=== PATIENT | female | born 1970 | race Caucasian/White ===

== ENCOUNTER 2017-04-06 23:03 | Emergency (ER) | payer MEDICARE ==
[2017-04-06] MEDS ORDERED: Sodium Chloride 0.9% 1,000 ML IV STA (23:38)
[2017-04-06] MEDS ORDERED: Morphine 2 mg/ml ISec IVP STA (23:38)
--- NOTE | 2017-04-06 23:43 | ED PDOC ---
Arrival/HPI - General Time Seen by Provider: 04/06/17 23:06 Historian: Patient - History of Present Illness Narrative History of Present Illness (Text): 04/06/17 23:40 Indu Esposito is a 46 year old female, whose past medical history includes depression, who presents to the emergency department complaining of stomach discomfort and nausea today. Patient states that she believes she has food poisoning after eating a boiled egg, avocado, and cereal this morning. Patient denies any fever, chills, chest pain, shortness of breath, vomiting, diarrhea, urinary symptoms, back pain, neck pain, headache, dizziness, or any other complaints. Time/Duration: 4-6 hours Symptom Onset: Gradual Symptom Course: Unchanged Severity Level: Mild Activities at Onset: Light Context: Home Past Medical History - Provider Review Nursing Documentation Reviewed: Yes Family/Social History - Physician Review Nursing Documentation Reviewed: Yes Family/Social History: No Known Family HX Allergies/Home Meds Allergies/Adverse Reactions: Allergies No Known Allergies Allergy (Unverified 04/06/17 23:31) Review of Systems - Review of Systems Constitutional: absent: Fevers, Night Sweats Eyes: absent: Vision Changes ENT: absent: Hearing Changes Respiratory: absent: SOB, Cough Cardiovascular: absent: Chest Pain Gastrointestinal: Abdominal Pain, Nausea. absent: Vomiting, Appetite Changes Genitourinary Female: absent: Dysuria, Frequency Musculoskeletal: absent: Arthralgias Skin: absent: Rash, Pruritis Neurological: absent: Headache, Dizziness Endocrine: absent: Diaphoresis Hemo/Lymphatic: absent: Adenopathy Physical Exam Vital Signs Reviewed: Yes Vital Signs Temp Pulse Resp BP Pulse Ox 04/07/17 03:04 78 16 107/70 99 04/07/17 01:04 81 16 105/72 99 04/06/17 23:04 98.3 F 86 16 98/72 L 99 Temperature: Afebrile Blood Pressure: Hypotensive Pulse: Regular Respiratory Rate: Normal Appearance: Positive for: Well-Appearing, Non-Toxic, Comfortable Pain Distress: None - Systems Exam Head: Present: Atraumatic, Normocephalic Pupils: Present: PERRL Extroacular Muscles: Present: EOMI Conjunctiva: Present: Normal Mouth: Present: Moist Mucous Membranes Neck: Present: Normal Range of Motion Respiratory/Chest: Present: Clear to Auscultation, Good Air Exchange. No: Respiratory Distress, Accessory Muscle Use Cardiovascular: Present: Regular Rate and Rhythm, Normal S1, S2. No: Murmurs Abdomen: Present: Normal Bowel Sounds. No: Tenderness, Distention, Peritoneal Signs Back: Present: Normal Inspection Upper Extremity: Present: Normal Inspection. No: Cyanosis, Edema Lower Extremity: Present: Normal Inspection. No: Edema Neurological: Present: GCS=15, CN II-XII Intact, Speech Normal Skin: Present: Warm, Dry, Normal Color. No: Rashes Psychiatric: Present: Alert, Oriented x 3, Normal Insight, Normal Concentration Medical Decision Making ED Course and Treatment: 04/06/17 23:49 Impression: 46 year old female complaining of stomach discomfort/nausea today. Differential Diagnosis included but are not limited to: Plan: -- EKG -- HCG and Urinalysis -- Labs -- Zofran, Morphine, and IV Fluids -- Reassess and disposition Progress Notes: EKG: Ordered, reviewed, and independently interpreted the EKG. Rate : 82 BPM Rhythm : NSR Interpretation : Occasional PVC. No acute changes. Comparison : No previous EKG for comparison. - Lab Interpretations Lab Results: 04/07/17 00:50 04/07/17 00:50 Lab Results 04/07/17 00:50: WBC 4.9, RBC 4.51, Hgb 13.1, Hct 39.3, MCV 87.1, MCH 29.0, MCHC 33.3, RDW 12.6, Plt Count 230, MPV 9.9 04/07/17 00:50: Sodium 136, Potassium 4.2, Chloride 103, Carbon Dioxide 26, Anion Gap 11, BUN 14, Creatinine 0.7, Est GFR ( Amer) > 60, Est GFR (Non- Af Amer) > 60, Random Glucose 123 H, Calcium 8.5, Total Bilirubin 0.3, AST 21, ALT 18, Alkaline Phosphatase 44, Total Protein 6.8, Albumin 3.8, Globulin 3.0, Albumin/Globulin Ratio 1.3, Lipase 86 04/06/17 23:50: Urine Color Yellow, Urine Appearance Sl cloudy, Urine pH 6.0, Ur Specific [place] >= 1.030, Urine Protein 30 H, Urine Glucose (UA) Negative, Urine Ketones Negative, Urine Blood Negative, Urine Nitrate Negative, Urine Bilirubin Small H, Urine Urobilinogen 1.0 H, Ur Leukocyte Esterase Negative, Urine RBC 0 - 2, Urine WBC 0 - 2, Ur Epithelial Cells 3 - 4, Urine Bacteria Mod , Urine HCG, Qual Negative I have reviewed the lab results: Yes - Medication Orders Current Medication Orders: Discontinued Medications Sodium Chloride (Sodium Chloride 0.9%) 1,000 mls @ 999 mls/hr IV .Q1H1M STA Stop: 04/07/17 00:38 Last Admin: 04/07/17 01:15 Dose: 999 mls/hr eMAR Start Stop Document 04/07/17 01:15 DANIEL (Rec: 04/07/17 01:43 LUIS FELIPE [id number]) Intravenous Solution Start Date 04/07/17 Start Time 01:15 End Date 04/07/17 End time 02:15 Total Infusion Time 60 Morphine Sulfate (Morphine) 2 mg IVP STAT STA Stop: 04/06/17 23:39 Last Admin: 04/07/17 01:15 Dose: 2 mg MAR Pain Assessment Document 04/07/17 01:15 DANIEL (Rec: 04/07/17 01:43 LUIS FELIPE [id number]) Pain Reassessment Is this a pain reassessment? No Sleep Is patient sleeping during reassessment? No Presence of Pain Presence of Pain Yes Pain Scale Used Pain Scale Used Numeric Location Left, Right or Bilateral Left Upper or Lower Lower Pain Location Body Site Abdomen Description Intensity of Pain at present 8 Acceptable Level of Pain 2 Pain Behavior Restlessness Facial Grimacing Aggravating Factors ADL's Changing Position Alleviating Factors/Management Medication Techniques IVP Administration Document 04/07/17 01:15 DANIEL (Rec: 04/07/17 01:43 LUIS FELIPE [id number]) Charges for Administration # of IVP Administrations 1 Ondansetron HCl (Zofran Inj) 4 mg IVP ONCE ONE Stop: 04/06/17 23:39 Last Admin: 04/07/17 01:15 Dose: 4 mg IVP Administration Document 04/07/17 01:15 DANIEL (Rec: 04/07/17 01:43 DANIEL CHAN-PC) Charges for Administration # of IVP Administrations 1 - Scribe Statement The provider has reviewed the documentation as recorded by the Britibnorris Walsh Provider Scribe Attestation: All medical record entries made by the Scribe were at my direction and personally dictated by me. I have reviewed the chart and agree that the record accurately reflects my personal performance of the history, physical exam, medical decision making, and the department course for this patient. I have also personally directed, reviewed, and agree with the discharge instructions and disposition. Disposition/Present on Arrival - Present on Arrival Any Indicators Present on Arrival: No - Disposition Have Diagnosis and Disposition been Completed?: Yes Diagnosis: Gastritis Disposition: HOME/ ROUTINE Disposition Time: 03:30 Patient Plan: Discharge Condition: GOOD Discharge Instructions (ExitCare): Gastritis (ED), Acute Nausea and Vomiting ( ED) Additional Instructions: Liquid diet next 12 hrs/advance diet slowly as tolerated/meds as prescribed/ follow up with your doctor this week/any recurrent worsening symptoms return to the emergency room Prescriptions: Ondansetron [Zofran Odt] 4 mg PO Q6 PRN #12 odt PRN Reason: Nausea/Vomiting Forms: [employer] (Macedonian)
[2017-04-06 23:45] VITALS: RESP 16; TEMP 98.3; O2SAT 99; BMI 22.6
[2017-04-07] LABS: URINE BILIRUBIN SMALL (NEGATIVE); URINE BLOOD NEGATIVE (NEGATIVE); URINE GLUCOSE (UA) NEGATIVE (NEGATIVE); URINE KETONE NEGATIVE (NEGATIVE); URINE LEUKOCYTE ESTERASE NEGATIVE Leu/uL (NEGATIVE); URINE PROTEIN 30 mg/dL (<30 mg/dL)
[2017-04-07 00:09] LABS: URINE APPEARANCE SL CLOUDY (CLEAR); URINE COLOR YELLOW (YELLOW)
[2017-04-07 00:20] LABS: URINE RBC 0 - 2 /hpf (0-2); URINE WBC 0 - 2 /hpf (0-6)
[2017-04-07 00:21] LABS: URINE BACTERIA MOD (NEG)
[2017-04-07 01:12] LABS: ALB/GLOB RATIO 1.3 (1.1-1.8); ALKALINE PHOSPHATASE 44 U/L (38-126); ALT/SGPT 18 U/L (7-56); AST/SGOT 21 U/L (14-36); BILIRUBIN,TOTAL 0.3 mg/dL (0.2-1.3); BLOOD UREA NITROGEN 14 mg/dL (7-21); CALCIUM 8.5 mg/dL (8.4-10.5); CARBON DIOXIDE 26 mmol/L (21-33); CHLORIDE 103 mmol/L (98-107); GFR AFRICAN-AMERICAN > 60; GLUCOSE,RANDOM 123 mg/dL (70-110); LIPASE 86 U/L (23-300); POTASSIUM 4.2 mmol/L (3.6-5.0); SODIUM 136 mmol/L (132-148); TOTAL PROTEIN 6.8 g/dL (5.8-8.3)
[2017-04-07 01:16] LABS: HEMATOCRIT 39.3 % (36.0-48.0); MEAN CELL VOLUME 87.1 fl (80.0-105.0); MEAN CORPUSCULAR HGB CONC 33.3 g/dl (31.0-37.0); MEAN PLATELET VOLUME 9.9 fl (7.0-11.0); RED CELL DISTRIBUTION WIDTH 12.6 % (11.5-14.5); WHITE BLOOD COUNT 4.9 10^3/ul (4.5-11.0)
[2017-04-07 05:36] VITALS: BP 107/70; PULSE 78
--- NOTE | 2017-04-07 15:24 | CARD ---
APPROVED REPORT EKG Measurement Heart [id number] <Conclusion> Sinus rhythm with occasional premature ventricular complexes Low voltage QRS
== END 2017-04-07 03:55 | disposition home or self-care (01) ==
LOC: ED 23:03
DX: K29.70 Gastritis, unspecified, without bleeding (principal)
CPT/HCPCS: 80053; 81001; 83690; 84703; 85027; 93005; 96361; 96374; 96375; 99285; J2270; J2405; J7040

== ENCOUNTER 2018-11-27 11:10 | Day surgery (SDC) | payer MEDICARE, OTHER ==
[2018-11-27 12:08] VITALS: BMI 26.6
[2018-11-27 12:30] LABS: BASO # 0.01 K/mm3 (0.0-2.0); BASO % 0.3 % (0.0-3.0); EOS # 0.1 (0.0-0.7); EOS % 2.4 % (1.5-5.0); HEMOGLOBIN 13.6 g/dL (12.0-16.0); LYMPH # 1.1 (1.2-3.4); LYMPH % 37.8 % (22.0-35.0); MEAN CELL VOLUME 85.9 fl (80.0-105.0); MEAN CORPUSCULAR HEMOGLOBIN 28.6 pg (25.0-35.0); MEAN CORPUSCULAR HGB CONC 33.3 g/dl (31.0-37.0); MEAN PLATELET VOLUME 9.8 fl (7.0-11.0); MONO # 0.2 (0.1-0.6); MONO % 8.2 % (1.0-6.0); RBC 4.75 10^6/uL (3.5-6.1); RED CELL DISTRIBUTION WIDTH 12.4 % (11.5-14.5); WHITE BLOOD COUNT 2.9 10^3/uL (4.5-11.0)
[2018-11-27 12:40] LABS: BLOOD UREA NITROGEN 15 mg/dL (7-21); CALCIUM 8.7 mg/dL (8.4-10.5); GFR NON-AFRICAN AMERICAN > 60
[2018-11-27 12:41] VITALS: RESP 18
[2018-11-27] MEDS ORDERED: Succinylcholine 200 mg/10 ml Inj IV ONE (13:03)
[2018-11-27] MEDS ORDERED: Propofol 10 mg/ml Inj (20 ML) ONE (13:03)
[2018-11-27] MEDS ORDERED: Sodium Chloride 0.9% 1,000 ML IV SCH (13:45)
[2018-11-27 14:33] VITALS: TEMP 98.2; O2SAT 100
[2018-11-27 15:30] VITALS: BP 122/70; PULSE 62
--- NOTE | 2018-11-27 19:12 | CARD ---
APPROVED REPORT Date of service: 11/27/2018 EKG Measurement Heart [id number] <Conclusion> Normal sinus rhythm Normal ECG
== END 2018-11-27 15:00 | disposition home or self-care (01) ==
LOC: SDS 11:10
PROVIDERS: ATTEND Psychiatry & Neurology Addiction Medicine
DX: F33.1 Major depressive disorder, recurrent, moderate (principal)
CPT/HCPCS: 36415; 80048; 84703; 85025; 90870; 93005; J0330; J2704; J7030; J7120

== ENCOUNTER 2018-11-30 11:55 | Day surgery (SDC) | payer MEDICARE, OTHER ==
[2018-11-30 12:41] VITALS: TEMP 98.2
[2018-11-30] MEDS ORDERED: Propofol 10 mg/ml Inj (20 ML) ONE (13:00)
[2018-11-30] MEDS ORDERED: Succinylcholine 200 mg/10 ml Inj IV ONE (13:01)
[2018-11-30] MEDS ORDERED: Sodium Chloride 0.9% 1,000 ML IV SCH (14:30)
[2018-11-30 14:35] VITALS: RESP 18
[2018-11-30 15:45] VITALS: BP 116/84; PULSE 76; O2SAT 99
== END 2018-11-30 16:30 | disposition home or self-care (01) ==
LOC: SDS 11:55
PROVIDERS: ATTEND Psychiatry & Neurology Addiction Medicine
DX: F32.89 Other specified depressive episodes (principal)
CPT/HCPCS: 84703; 90870; J0330; J2704; J7030